=== PATIENT | male | born 1940 | race Two or more races ===

== ENCOUNTER 2017-03-17 21:05 | Inpatient (IN) | payer MEDICARE, MEDICAID ==
[~2017-03-17] VITALS: Ht 180.3 cm; Wt 94.3 kg
[2017-03-17] MEDS ORDERED: MORPHINE SULFATE 4 MG/ML CPJ (NOT FOR IM USE) IV STA (21:18)
[2017-03-17 21:55] LABS: HEMATOCRIT. 35.3 % (42.0-52.0); HEMOGLOBIN. 11.8 g/dL (14.0-18.0); MEAN CORPUSCULAR HEMOGLOBIN 36.1 pg (28.0-32.0); MEAN CORPUSCULAR VOLUME 108.3 fL (80.0-94.0); MEAN PLATELET VOLUME 10.1 fl (7.4-10.4); PLATELET 114 x1000/uL (130-400); RED BLOOD CELL COUNT 3.26 mill/uL (4.7-6.1); RED CELL DISTRIBUTION WIDTH 13.8 % (11.6-14.6)
[2017-03-17 22:12] LABS: CARBON DIOXIDE 25 mEq/L (21-32); CHLORIDE 106 mEq/L (98-107); TROPONIN I < 0.02 ng/mL (0.00-0.04)
[2017-03-17 22:15] LABS: PLATELET ESTIMATE DECREASED
[2017-03-17] MEDS ORDERED: NITROGLYCERIN OINT 1GM/INCH UDPKT TD ONE (22:15)
[2017-03-17] MEDS ORDERED: MORPHINE SULFATE 4 MG/ML CPJ (NOT FOR IM USE) IV ONE (22:30)
[2017-03-18] VITALS (10 sets, daily range): BP systolic 112–148; BP diastolic 50–72
[2017-03-18] MEDS ORDERED: MORPHINE SULFATE 4 MG/ML CPJ (NOT FOR IM USE) IV ONE (00:15)
[2017-03-18] MEDS ORDERED: MORPHINE SULFATE 2 MG/ML CPJ (NOT FOR IM USE) IV NR (00:45)
[2017-03-18] MEDS ORDERED: ZOLPIDEM TARTRATE 5MG TABLET PO PRN (04:30)
[2017-03-18] MEDS: MORPHINE SULFATE 2 MG/ML CPJ (NOT FOR IM USE) IV PRN ×2 (04:41→14:46)
[2017-03-18 07:47] LABS: CREATINE KINASE 56 IU/L (39-308); CREATINE KINASE MB FRACTION < 0.5 ng/mL (0.5-3.6); TROPONIN I < 0.02 ng/mL (0.00-0.04)
[2017-03-18] MEDS ORDERED: ENOXAPARIN 40MG/0.4ML SYR SUBCUT SCH (09:30)
[2017-03-18] MEDS ORDERED: REGADENOSON 0.4 MG/5 ML IV ONE (09:30)
[2017-03-18] MEDS ORDERED: IOHEXOL-350 100 ML BOTTLE ONE (10:00)
[2017-03-18] MEDS ORDERED: SODIUM CHLORIDE 0.9% 10ML VIAL ONE (10:00)
[2017-03-18 10:08] LABS: T4 FREE 0.92 ng/dL (0.76-1.46)
[2017-03-18] MEDS ORDERED: PANTOPRAZOLE 40MG DR TABLET PO ONE (10:30)
[2017-03-18] MEDS ORDERED: PANTOPRAZOLE 40MG DR TABLET PO SCH (10:30)
[2017-03-18] MEDS ORDERED: PREDNISONE 5MG TABLET PO ONE (10:30)
[2017-03-18] MEDS ORDERED: PREDNISONE 5MG TABLET PO SCH (10:30)
[2017-03-18] MEDS ORDERED: ASPIRIN 81MG TABLET PO SCH (11:00)
[2017-03-18 11:56] LABS: HEMATOCRIT 32.3 % (42.0-52.0); HEMOGLOBIN 10.8 g/dL (14.0-18.0); MEAN CORPUSCULAR HEMOGLOBIN 36.2 pg (28.0-32.0); MEAN CORPUSCULAR VOLUME 108.5 fL (80.0-94.0); PLATELET 106 x1000/uL (130-400); RED BLOOD CELL COUNT 2.98 mill/uL (4.7-6.1); RED CELL DISTRIBUTION WIDTH 14.1 % (11.6-14.6)
[2017-03-18 12:17] LABS: CARBON DIOXIDE 27 mEq/L (21-32); CHLORIDE 104 mEq/L (98-107); TROPONIN I < 0.02 ng/mL (0.00-0.04)
[2017-03-18 15:36] LABS: CREATINE KINASE 50 IU/L (39-308); CREATINE KINASE MB FRACTION 0.6 ng/mL (0.5-3.6); TROPONIN I < 0.02 ng/mL (0.00-0.04)
[2017-03-18] MEDS ORDERED: IPRATROPIUM/ALBUTEROL 0.5-3(2.5)MG/3ML NEB HHN SCH ×2 (16:00→17:45)
[2017-03-18] MEDS ORDERED: ENOXAPARIN 100MG/ML SYR SUBCUT SCH (18:00)
[2017-03-18] MEDS ORDERED: ESOM40CA PO (18:50)
[2017-03-18] MEDS ORDERED: FURO-152 PO (18:51)
[2017-03-18] MEDS ORDERED: AMLO10TA80 PO (18:52)
[2017-03-18] MEDS ORDERED: CHOL100046 PO (18:52)
[2017-03-18] MEDS ORDERED: PRED5TAB48 PO (18:54)
[2017-03-18] MEDS ORDERED: PRED2.5T4 PO (18:54)
[2017-03-18] MEDS ORDERED: ESCI10TA54 PO (18:55)
[2017-03-18] MEDS ORDERED: BICA50TA2 PO (18:55)
[2017-03-18] MEDS ORDERED: atovaquone (18:58)
[2017-03-18] MEDS ORDERED: CEFTRIAXONE 1 G PREMIX 50 ML IV SCH (21:00)
[2017-03-19] MEDS ORDERED: FUROSEMIDE 20MG TABLET PO SCH (09:00)
== END 2017-03-18 22:08 | disposition short-term general hospital (02) | DRG 175 ==
LOC: ER 21:05 → ENRESERV 03-18 02:00 → 3WST 03-18 03:30
PROVIDERS: ADMIT Family Medicine; ATTEND Family Medicine
DX: I26.99 Other pulmonary embolism without acute cor pulmonale (principal); J96.00 Acute respiratory failure, unspecified whether with hypoxia or hypercapnia; D69.3 Immune thrombocytopenic purpura; C85.90 Non-Hodgkin lymphoma, unspecified, unspecified site; D64.9 Anemia, unspecified; E11.9 Type 2 diabetes mellitus without complications; I24.9 Acute ischemic heart disease, unspecified; J98.11 Atelectasis; J44.9 Chronic obstructive pulmonary disease, unspecified; I11.9 Hypertensive heart disease without heart failure; E78.5 Hyperlipidemia, unspecified; F41.9 Anxiety disorder, unspecified; F17.210 Nicotine dependence, cigarettes, uncomplicated; I25.10 Atherosclerotic heart disease of native coronary artery without angina pectoris; R91.1 Solitary pulmonary nodule; I77.6 Arteritis, unspecified; N62 Hypertrophy of breast; Z85.46 Personal history of malignant neoplasm of prostate; Z90.79 Acquired absence of other genital organ(s); Z88.6 Allergy status to analgesic agent; Z90.81 Acquired absence of spleen
CPT/HCPCS: 36415; 71010; 71275; 80053; 80061; 82550; 82553; 83036; 83880; 84439; 84443; 84484; 85025; 85027; 85379; 85610; 93005; 93306; 93970; 94640; 94664; 96374; 96376; 99285; A4216; J0696; J1650; J2270; J7512; J7620; Q9967